=== PATIENT | male | born 1965 ===

== ENCOUNTER → 2017-04-03 | Outpatient (CLI) | payer OTHER | END | disposition home or self-care (01) | LOC: C.PATHSPEC 14:23 | PROVIDERS: ATTEND Orthopaedic Surgery | DX: C49.9 Malignant neoplasm of connective and soft tissue, unspecified (principal) ==

== ENCOUNTER → 2017-04-03 | Outpatient (CLI) | payer OTHER | END | disposition home or self-care (01) | LOC: C.LABSPEC 14:21 | PROVIDERS: ATTEND Orthopaedic Surgery | DX: C49.9 Malignant neoplasm of connective and soft tissue, unspecified (principal) ==